=== PATIENT | female | born 1935 | race Caucasian/White ===

== ENCOUNTER 2024-01-18 21:00 | Emergency (ER) | payer MEDICARE, OTHER ==
[~2024-01-18] VITALS: Ht 152.4 cm; Wt 55.0 kg
[~2024-01-18 21:00] MED LIST: AMLO5TAB88 PO; CHOL500010 PO; DONE5TAB33 PO; MEMA5TAB16 PO; SERT-112 PO
[2024-01-18 21:05] VITALS: O2SAT 97
[2024-01-18] MEDS: TETANUS, DIPHTHERIA, PERTUSSIS VAC/PF 0.5ML (>10YR OLD) IM ONE (21:30)
[2024-01-18] MEDS: LIDOCAINE HCL/PF 1% 10 MG/ML 5ML VIAL INFIL ONE (23:15)
[2024-01-19] MEDS: BACITRACIN ZINC OINT UDPKT TOP ONE (00:24)
[2024-01-19 00:32] VITALS: BP 134/58; PULSE 57; RESP 16; TEMP 36.61404; O2SAT 99
== END 2024-01-19 00:34 | disposition home or self-care (01) ==
LOC: ER 21:00
DX: S61.412A Laceration without foreign body of left hand, initial encounter (principal); S60.511A Abrasion of right hand, initial encounter; Z88.1 Allergy status to other antibiotic agents; Z88.8 Allergy status to other drugs, medicaments and biological substances; X58.XXXA Exposure to other specified factors, initial encounter; Y93.89 Activity, other specified; Y92.89 Other specified places as the place of occurrence of the external cause; Y99.8 Other external cause status
CPT/HCPCS: 12002; 73090; 73110; 99284